=== PATIENT | female | born 1985 | race Caucasian/White ===

== ENCOUNTER 2023-08-17 13:15 | Emergency (ER) | payer OTHER, MEDICAID, SELFPAY ==
[2023-08-17 13:31] VITALS: BP 141/89; PULSE 94; RESP 18; TEMP 36.1; O2SAT 100
--- NOTE | 2023-08-17 14:22 | PC.NURSE ---
patient seen walking out of triage with steady gait about 20 minutes ago.
== END 2023-08-17 14:22 | disposition left against medical advice (07) ==
LOC: ANHED 14:27
PROVIDERS: PCP Family Medicine
DX: M25.561 Pain in right knee (principal)
CPT/HCPCS: 99199

== ENCOUNTER 2025-02-06 14:06 | Emergency (ER) | payer OTHER, SELFPAY ==
--- NOTE | ~2025-02-06 | US_ITS ---
CORRECTED REPORT examination description corrected [facility] [place] 02/09/2025 This report was recreated on 02/09/2025. Original report was BUILDER EXAMINATION: US OB transvaginal, 02/06/2025 17:20 SEAT BUILDER HISTORY: 6 weeks, bleeding, cramping Comparison: None Technique: Nassar-scale and color Doppler images were obtained. Findings: The uterus anteverted 10.6 x 5.1 x 5 cm. Endometrium 6.2 mm, there is no intrauterine gestational sac identified Right ovary 3 x 1.5 x 2.8 cm, no adnexal mass, normal flow. Left ovary 2.8 x 1.7 x 2.6 cm, no adnexal mass, normal flow IMPRESSION: No intrauterine identified. No adnexal mass to suggest ectopic although this is not excluded. Correlate with beta-hCG and follow-up. Reviewed, dictated and finalized at location P. BUILDER IMPRESSION: No intrauterine identified. No adnexal mass to suggest ec topic although this is not excluded. Correlate with beta-hCG and foll ow-up.
[2025-02-06 14:12] VITALS: BP 152/101; PULSE 110; RESP 16; TEMP 36.5; O2SAT 98
--- NOTE | 2025-02-06 15:51 | ED_ITS ---
HPI - General Chief complaint: Vaginal Bleeding <CALEB Laboy Last Filed: 02/06/25 16:02> Stated complaint: vag bleed ? <CALEB Laboy Last Filed: 02/06/25 16:02> Time Seen by Provider: 02/06/25 15:51 <CALEB Laboy Last Filed: 02/06/25 16:02> Focused HPI: Patient is a 40 y/o female who presents to the ED with report of vaginal bleeding. Patient reports she is around 6 weeks gestation. History of irregular cycles. Did have her 1st appointment with Dr. Green yesterday, confirmed. . States she has had intermittent brown/bloody vaginal discharge for the past 4 days. Reports more spotting, denies heavy bleeding or soaking through a pad. States she missed her US appointment today and prompted here for further evaluation. Reports lower abd cramping. GENERAL: Well-appearing, morbidly obese with BMI of 52.7, and in no acute distress. HEAD: Normocephalic, atraumatic. CHEST: Clear to auscultation. ?No respiratory distress. HEART: Regular rate and rhythm.? NEURO: ?Alert and oriented x3. Patient screened in triage and initial orders placed.? ?Additional care and disposition to be based upon?diagnostic testing and treatment. <Shania Cole PA-C - Last Filed: 02/06/25 16:02> Source: patient <CALEB Laboy Last Filed: 02/06/25 16:02> Mode of arrival: ambulatory <CALEB Laboy Last Filed: 02/06/25 16:02> Limitations: no limitations <CALEB Laboy Last Filed: 02/06/25 16:02> History of Present Illness HPI Narrative: Agree with above HPI. <ESTER Lou Last Filed: 02/07/25 01:50> Related Data Home medications: Home Medications ?Medication ?Instructions ?Recorded ?Confirmed ?Last Taken ?Type fluoxetine 40 mg capsule 40 mg PO 06/18/23 02/05/25 U nknown History aripiprazole 10 mg tablet 10 mg PO 02/05/25 02/05/25 U nknown History dextroamphetamine-amphetamine ER 20 mg PO 02/05/2509/24 Unknown History 15 mg 24hr capsule,extend release <CALEB Laboy Last Filed: 02/06/25 16:02> Allergies/Adverse reactions: Allergies Allergy/AdvReac Type Severity Reaction Status Date / Time No Known Allergies Allergy Verified 02/05/25 08:12 <CALEB Laboy Last Filed: 02/06/25 16:02> Review of Systems 2 Review of Systems: All systems reviewed & are unremarkable except as noted in HPI and below <ESTER Lou Last Filed: 02/07/25 01:50> [facility] Past Medical History Medical History: Medical History (Updated 02/07/25 @ 00:00 by Dottie Mooney) Encounter for removal of intrauterine contraceptive device Anxiety Depression <Shania Cole PA-C - Last Filed: 02/06/25 16:02> Surgical History Surgical History: Surgical History History of cholecystectomy <CALEB Laboy Last Filed: 02/06/25 16:02> Family History Family History: Family History Mother Breast cancer <CALEB Laboy Last Filed: 02/06/25 16:02> Social History Social History: Social History Alcohol intake: current Alcohol use details: rare Substance use: never Do You Feel Safe in your Home?: Yes Lack of Transportation: No Lack of Food: Never True Current Housing: I Have Housing Concerned About Future Housing: No Difficulty Paying Gas/Electric Bills: No Difficulty Paying for Meds: No Currently Unemployed: No Education: High School Diploma/GED Difficulty w/ Childcare or Family Care: No Living arrangements: with family Occupation/Education: occupation <CALEB Laboy Last Filed: 02/06/25 16:02> Exam 2 Narrative: GENERAL: Tearful and visibly upset. HEAD: Normocephalic, atraumatic. EYES: PERRLA and EOMI. ENT: Nares clear, no rhinorrhea or epistaxis. Mucous membranes moist. Oropharynx without tonsillar hypertrophy exudate or other lesions. Bilateral TMs pearly andrews non-bulging NECK: Supple. No adenopathy or masses. No carotid bruits or JVD CHEST: Clear to auscultation. No respiratory distress. No wheezes rales or rhonchi HEART: Regular rate and rhythm. No murmur heard. Normal peripheral pulses. ABDOMEN: Right and left lower quadrant tenderness, normal active bowel sounds. EXTREMITIES: Normal range of motion. No edema. SKIN: Warm, dry, no rash. NEURO: No focal deficits. Alert and oriented x3. PSYCH: Normal mood and affect <ESTRE Lou Last Filed: 02/07/25 01:50> Course Vital Signs Vital signs: Vital Signs Temperature 97.7 F 02/06/25 14:12 Pulse Rate 110 H 02/06/25 14:12 Respiratory Rate 16 02/06/25 14:12 Blood Pressure 152/101 H 02/06/25 14:12 Pulse Oximetry 98 02/06/25 14:12 Temperature 97.7 F 02/06/25 14:12 Pulse Rate 99 02/06/25 17:10 Respiratory Rate 18 02/06/25 17:10 Blood Pressure 113/84 02/06/25 17:10 Pulse Oximetry 100 02/06/25 17:10 <Shania Cole PA-C - Last Filed: 02/06/25 16:02> Vital Signs Temperature 97.7 F 02/06/25 14:12 Pulse Rate 110 H 02/06/25 14:12 Respiratory Rate 16 02/06/25 14:12 Blood Pressure 152/101 H 02/06/25 14:12 Pulse Oximetry 98 02/06/25 14:12 Temperature 97.7 F 02/06/25 14:12 Pulse Rate 99 02/06/25 17:10 Respiratory Rate 18 02/06/25 17:10 Blood Pressure 113/84 02/06/25 17:10 Pulse Oximetry 100 02/06/25 17:10 <ESTER Lou - Last Filed: 02/07/25 01:50> MDM - OB/Uterine Contractions MDM Narrative Medical decision making narrative: MSE by PAZ in triage. <Shania Cole PA-C - Last Filed: 02/06/25 16:02> MSE by PAZ in triage. Patient is a 40 y/o female who presents to the ED with report of vaginal bleeding. Patient reports she is around 6 weeks gestation. History of irregular cycles. Did have her 1st appointment with Dr. Green yesterday, confirmed. . States she has had intermittent brown/bloody vaginal discharge for the past 4 days. Reports more spotting, denies heavy bleeding or soaking through a pad. States she missed her US appointment today and prompted here for further evaluation. Reports lower abd cramping. Patient tearful and visibly distressed during initial evaluation. She reports mild diffuse lower abdominal pain. UA displayed mild hematuria, CBC showed mild leukocytosis, and CMP within normal limits. Stable vitals. Quantitative beta- hCG was 239.42. All other labs within normal limits. Transvaginal ultrasound reported no intrauterine identified and no adnexal mass to suggest ectopic although this is not excluded. Correlate with beta-hCG and follow-up. Spoke with on-call OBGYN provider for Dr. Green- Dr. Richter-who recommended follow-up quantitative hCG on Sunday and close follow-up in office next week. Explained to patient that this early on in the it is hard to have a definitive answer in further workup is warranted. Patient verbalized understanding and agreement with discharge instructions and follow-up plan. <ESTER Lou - Last Filed: 02/07/25 01:50> Lab Data Result diagrams: 02/06/25 16:10 02/06/25 16:10 <Shania Cole PA-C - Last Filed: 02/06/25 16:02> Labs: Lab Results 02/06/25 Range/Units 16:10 WBC 10.5 H (4.5-10.0) K/mm3 RBC 4.50 (4.2-5.4) M/mm3 Hgb 14.0 (12.0-15.0) g/dL Hct 42.8 (37.0-47.0) % MCV 95.1 (80-100) fl MCH 31.1 (26-34) pg MCHC 32.7 (32-36) g/dl RDW 13.5 (11.5-14.5) % Plt Count 349 (150-375) k/mm3 MPV 8.7 (7.4-10.4) fl Immature Gran % (Auto) 0.6 H (0-0.5) % Neut % (Auto) 61.3 (45.5-73.1) % Lymph % (Auto) 30.6 (18.3-44.2) % [place] % (Auto) 6.4 (2.6-8.5) % Eos % (Auto) 0.6 (0-4.4) % Baso % (Auto) 0.5 (0.2-1.2) % Lymph # (Auto) 3.20 (0.9-3.2) K/mm3 [place] # (Auto) 0.7 H (0.1-0.6) K/mm3 Eos # (Auto) 0.1 (0-0.3) K/mm3 Baso # (Auto) 0.1 (0.0-0.1) K/mm3 Abs Immat Gran (auto) 0.06 H (0.00-0.031) K/mm3 Absolute Neuts (auto) 6.4 (1.3-6.7) K/mm3 Absolute Nucleated RBC 0.000 (0.0-0.012) K/mm3 Nucleated RBC % 0.0 (0.0-0.2) % PT 13.2 (11.1-14.7) Seconds INR 1.0 APTT 29.1 (22.3-36.8) Seconds Sodium 135 L (137-145) mmol/L Potassium 3.3 L (3.4-5.0) mmol/L Chloride 101 (98-107) mmol/L Carbon Dioxide 27 (22-30) mmol/L Anion Gap 7 (4-12) mmol/L BUN 6 L (7-17) mg/dL Creatinine 0.79 (0.7-1.0) mg/dL Estim Creat Clear Calc 126 ml/min Estimated GFR > 60 (59 - ) Glucose 101 (65-110) mg/dL Calcium 8.9 (8.4-10.2) mg/dL Total Bilirubin 0.5 (0.2-1.3) mg/dL AST 20 (14-36) U/L ALT 15 (6-35) U/L Alkaline Phosphatase 92 (38-126) U/L Total Protein 7.3 (6.3-8.2) g/dL Albumin 3.9 (3.5-5.1) g/dL Beta HCG, Quant 239.42 mIU/ML Urine Color Yellow (Yellow) Urine Appearance Clear (Clear) Urine pH 6.5 (5.0-9.0) Ur Specific [place] 1.008 (1.001-1.035) Urine Protein Negative (Negative) mg/dL Urine Glucose (UA) Negative (Negative) mg/dL Urine Ketones Negative (Negative) mg/dL Ur Blood (Man) 3+ H (Negative) Urine Nitrate Negative (Negative) Urine Bilirubin Negative (Negative) Urine Urobilinogen 0.2 (<2.0) mg/dL Leukocyte Esterase Rfl Negative (Negative) ABBEY/UL Urine RBC 0-2 (0-2) /hpf Urine WBC 0-5 (0-3) /hpf Ur Squamous Epith Cells Occasional (Few) /hpf Urine Bacteria None seen /hpf Urine Casts 0-2 Blood Type O Positive Antibody Screen Negative Screen Not Reportable Baby's Blood Type Not Reportable Baby's AMARI Not Reportable Doses of RhIg Required 0 <Shania Cole PA-C - Last Filed: 02/06/25 16:02> Lab Results 02/06/25 Range/Units 16:10 WBC 10.5 H (4.5-10.0) K/mm3 RBC 4.50 (4.2-5.4) M/mm3 Hgb 14.0 (12.0-15.0) g/dL Hct 42.8 (37.0-47.0) % MCV 95.1 (80-100) fl MCH 31.1 (26-34) pg MCHC 32.7 (32-36) g/dl RDW 13.5 (11.5-14.5) % Plt Count 349 (150-375) k/mm3 MPV 8.7 (7.4-10.4) fl Immature Gran % (Auto) 0.6 H (0-0.5) % Neut % (Auto) 61.3 (45.5-73.1) % Lymph % (Auto) 30.6 (18.3-44.2) % [place] % (Auto) 6.4 (2.6-8.5) % Eos % (Auto) 0.6 (0-4.4) % Baso % (Auto) 0.5 (0.2-1.2) % Lymph # (Auto) 3.20 (0.9-3.2) K/mm3 [place] # (Auto) 0.7 H (0.1-0.6) K/mm3 Eos # (Auto) 0.1 (0-0.3) K/mm3 Baso # (Auto) 0.1 (0.0-0.1) K/mm3 Abs Immat Gran (auto) 0.06 H (0.00-0.031) K/mm3 Absolute Neuts (auto) 6.4 (1.3-6.7) K/mm3 Absolute Nucleated RBC 0.000 (0.0-0.012) K/mm3 Nucleated RBC % 0.0 (0.0-0.2) % PT 13.2 (11.1-14.7) Seconds INR 1.0 APTT 29.1 (22.3-36.8) Seconds Sodium 135 L (137-145) mmol/L Potassium 3.3 L (3.4-5.0) mmol/L Chloride 101 (98-107) mmol/L Carbon Dioxide 27 (22-30) mmol/L Anion Gap 7 (4-12) mmol/L BUN 6 L (7-17) mg/dL Creatinine 0.79 (0.7-1.0) mg/dL Estim Creat Clear Calc 126 ml/min Estimated GFR > 60 (59 - ) Glucose 101 (65-110) mg/dL Calcium 8.9 (8.4-10.2) mg/dL Total Bilirubin 0.5 (0.2-1.3) mg/dL AST 20 (14-36) U/L ALT 15 (6-35) U/L Alkaline Phosphatase 92 (38-126) U/L Total Protein 7.3 (6.3-8.2) g/dL Albumin 3.9 (3.5-5.1) g/dL Beta HCG, Quant 239.42 mIU/ML Urine Color Yellow (Yellow) Urine Appearance Clear (Clear) Urine pH 6.5 (5.0-9.0) Ur Specific [place] 1.008 (1.001-1.035) Urine Protein Negative (Negative) mg/dL Urine Glucose (UA) Negative (Negative) mg/dL Urine Ketones Negative (Negative) mg/dL Ur Blood (Man) 3+ H (Negative) Urine Nitrate Negative (Negative) Urine Bilirubin Negative (Negative) Urine Urobilinogen 0.2 (<2.0) mg/dL Leukocyte Esterase Rfl Negative (Negative) ABBEY/UL Urine RBC 0-2 (0-2) /hpf Urine WBC 0-5 (0-3) /hpf Ur Squamous Epith Cells Occasional (Few) /hpf Urine Bacteria None seen /hpf Urine Casts 0-2 Blood Type O Positive Antibody Screen Negative Screen Not Reportable Baby's Blood Type Not Reportable Baby's AMARI Not Reportable Doses of RhIg Required 0 <ESTER Lou Filed: 02/07/25 01:50> Critical Care Time Critical Care Time Critical Care Time: No <ESTER Lou Filed: 02/07/25 01:50> Discharge Plan Discharge Clinical Impression: Threatened <CALEB Laboy Last Filed: 02/06/25 16:02> Patient Disposition: Home <CALEB Laboy Last Filed: 02/06/25 16:02> Condition: Stable <CALEB Laboy Last Filed: 02/06/25 16:02> Instructions: Threatened Miscarriage (ED) <CALEB Laboy Last Filed: 02/06/25 16:02> Additional Instructions: Return to the emergency department if you experience fever, chest pain, shortness of breath, abdominal pain with nausea and vomiting, weakness, numbness/tingling, or any other symptoms that are concerning to you. Take Tylenol as needed for abdominal pain/cramping. Obtain repeat lab order Sunday and bring lab order form. Follow-up closely with your OBGYN Dr. Green. <CALEB Laboy Last Filed: 02/06/25 16:02> Patient Language: Samoan <Shania Cole PA-C - Last Filed: 02/06/25 16:02> Prescriptions: No Action fluoxetine 40 mg capsule 40 mg PO dextroamphetamine-amphetamine 15 mg capsule,extended release 24hr 20 mg PO aripiprazole 10 mg tablet 10 mg PO hydroxyzine HCl 25 mg tablet 25 mg PO TID PRN (Reason: anxiety) Qty: 60 0RF <Shania Cole PA-C - Last Filed: 02/06/25 16:02> Other Ambulatory Orders: Beta HCG Quantitative (Routine) Timeframe: [id number] Location: Determined by Patient Ordered By: Narda Roldan <Shania Cole PA-C - Last Filed: 02/06/25 16:02> Follow-up/Referrals: Brooke Bernard MD [Primary Care Provider, Family Practice] Cliff Green MD [Physician, SUPERVISOR TRA[employer]ER] <Shania Cole PA-C - Last Filed: 02/06/25 16:02>
[2025-02-06 16:19] LABS: Hematocrit 42.8 % (37.0-47.0); Hemoglobin 14.0 g/dL (12.0-15.0); Immature Granulocyte Percent A 0.6 % (0-0.5); Lymphocytes Absolute Auto 3.20 K/mm3 (0.9-3.2); Mean Corpuscular HGB Conc 32.7 g/dl (32-36); Mean Corpuscular Hemoglobin 31.1 pg (26-34); Mean Corpuscular Volume 95.1 fl (80-100); Nucleated Red Blood Cells Absolute Auto 0.000 K/mm3 (0.0-0.012); Nucleated Red Blood Cells Perc 0.0 % (0.0-0.2); Platelet Count Result 349 k/mm3 (150-375); Red Blood Count 4.50 M/mm3 (4.2-5.4); White Blood Count 10.5 K/mm3 (4.5-10.0)
[2025-02-06 16:23] LABS: Add Urine Microscopic? YES; Appearance Urine Clear (Clear); Glucose Urine UA Negative (Negative); Leukocyte Esterase Ur Negative LEU/UL (Negative); Nitrate Urine Negative (Negative); Non Pathogenic Casts 0-2; Specific Grav Ur 1.008 (1.001-1.035)
[2025-02-06 16:36] LABS: Alanine Aminotransferase 15 U/L (6-35); Albumin Level 3.9 g/dL (3.5-5.1); Alkaline Phosphatase 92 U/L (38-126); Anion Gap 7 mmol/L (4-12); Aspartate Amino Transferase 20 U/L (14-36); Bilirubin,Total 0.5 mg/dL (0.2-1.3); Blood Urea Nitrogen 6 mg/dL (7-17); Calcium 8.9 mg/dL (8.4-10.2); Carbon Dioxide 27 mmol/L (22-30); Chloride 101 mmol/L (98-107); Estimated CRCL calculation 126 ml/min; Estimated Glomerular Filt Rate > 60; Glucose 101 mg/dL (65-110); Potassium 3.3 mmol/L (3.4-5.0); Sodium 135 mmol/L (137-145); Total Protein 7.3 g/dL (6.3-8.2)
[2025-02-06 16:39] LABS: INR 1.0; Partial Thromboplastin Time 29.1 Seconds (22.3-36.8); Prothrombin Time 13.2 Seconds (11.1-14.7)
[2025-02-06 16:53] LABS: Beta HCG Quantitative 239.42 mIU/ML
[2025-02-06 17:10] VITALS: BP 113/84; PULSE 99; RESP 18; O2SAT 100
== END 2025-02-06 19:09 | disposition home or self-care (01) ==
PROVIDERS: Physician Assistant; PCP Family Medicine
DX: O20.0 Threatened abortion (principal); O09.521 Supervision of elderly multigravida, first trimester; O99.211 Obesity complicating pregnancy, first trimester; E66.01 Morbid (severe) obesity due to excess calories; O99.341 Other mental disorders complicating pregnancy, first trimester; F41.9 Anxiety disorder, unspecified; F32.A Depression, unspecified; Z90.49 Acquired absence of other specified parts of digestive tract; Z79.899 Other long term (current) drug therapy; Z3A.01 Less than 8 weeks gestation of pregnancy
CPT/HCPCS: 36415; 76801; 76817; 80053; 81001; 84702; 85025; 85461; 85610; 85730; 86850; 86900; 86901; 99284

== ENCOUNTER 2025-03-11 09:57 | Outpatient (CLI) | payer OTHER, SELFPAY ==
--- NOTE | ~2025-03-11 | US_ITS ---
EXAMINATION: US OB <= 14 weeks fetus DATE: 03/11/2025 11:09 INDICATION: Establish dating and viability of the first trimester TECHNIQUE: Real-time pelvic ultrasound utilizing transabdominal probe was performed. The interpreting radiologist was not present for the study. COMPARISON: 02/06/2025 FINDINGS: The uterus measures 14.5 x 7.6 x 8.3 cm. There is an intrauterine gestational sac. A yolk sac and pole are identified. The crown rump length measures 2.5 cm, which correlates with an estimated gestational age of 9 weeks and 2 days. heart motion is identified measuring 167 beats per minute (bpm) by M-mode Doppler. The right ovary is not visualized. The left ovary measures 1.9 x 1.7 x 2.0 cm. 8 mm anechoic cyst/follicle in the left ovary. There is no free fluid in the pelvis. IMPRESSION: 1. Single living fetus with heart rate of 167 bpm. 2. Gestational age by ultrasound of 9 weeks 2 day(s) +/- 6 day(s) with ultrasound estimated date of delivery ([facility]) of 10/12/2025. Reviewed, dictated and finalized at location A. GRADER IMPRESSION: 1. Single living fetus with heart rate of 167 bpm. 2. Gestational age by ultrasound of 9 weeks 2 day(s) +/- 6 day(s) with ultraso und estimated date of delivery ([facility]MA) of 10/12/2025.
== END 2025-03-11 09:58 | disposition home or self-care (01) ==
PROVIDERS: PCP Family Medicine; Visit Provider Student in an Organized Health Care Education/Training Program
DX: O36.80X0 Pregnancy with inconclusive fetal viability, not applicable or unspecified (principal); Z3A.00 Weeks of gestation of pregnancy not specified; N91.2 Amenorrhea, unspecified
CPT/HCPCS: 76801